=== PATIENT | female | born 1935 | race Caucasian/White ===

== ENCOUNTER 2017-06-11 06:12 | Emergency (ER) | payer MEDICARE, BC ==
[~2017-06-11] VITALS: Ht 5032.2 cm; Wt 89.5 kg
[~2017-06-11 06:12] MED LIST: AMIO200T57 PO; ASPI-1265 PO; ATOR20TA PO; ATR0.5NEB NEB; CALC600T2 PO; CARV3.1289 PO; CHOL100010 PO; DET2T PO; DONE10TA44 PO; FLUO20CA39 PO; FURO-150 PO; GLUC1CAP32 PO; HYDR-565 PO; LEVO150T8 PO; NITR0.4T51 SL; OMEG-79 PO; OMEP-84 PO; POTA10TA36 PO
[2017-06-11 06:49] LABS: BASOPHILS % (AUTO) 0.5 % (0-1); EOSINOPHILS # (AUTO) 0.4 X10'3 (0-0.9); EOSINOPHILS % (AUTO) 5.1 % (0-6); HEMOGLOBIN 13.3 g/dl (12.0-16.0); LYMPHOCYTES # (AUTO) 2.5 X10'3 (1.1-4.8); MEAN CORPUSCULAR HEMOGLOBIN 31.3 PG (27.0-31.0); MEAN CORPUSCULAR HGB CONC 34.2 % (33.0-36.5); MEAN CORPUSCULAR VOLUME 91.6 FL (78-98); MEAN PLATELET VOLUME 8.1 FL (7.4-10.4); MONOCYTES # (AUTO) 0.7 X10'3 (0-0.9); MONOCYTES % (AUTO) 7.6 % (2-12); NEUTROPHILS # (AUTO) 5.1 X10'3 (1.8-7.7); NEUTROPHILS % (AUTO) 57.8 % (42-75); PLATELET COUNT 236 X10'3 (140-440); RED BLOOD COUNT 4.26 X10'6 (4.20-5.60); RED CELL DISTRIBUTION WIDTH 15.4 % (11.5-14.5); WHITE BLOOD COUNT 8.8 X10'3 (4.5-11.0)
[2017-06-11 07:04] LABS: PARTIAL THROMBOPLASTIN TIME 27 SECONDS (22-32); PROTHROMBIN TIME 10.7 SECONDS (9.0-12.0)
[2017-06-11 07:11] LABS: ALANINE AMINOTRANSFERASE 27 U/L (12-78); ALBUMIN 3.4 G/DL (3.4-5.0); ALBUMIN/GLOBULIN RATIO 0.7 (1.1-1.5); ALKALINE PHOSPHATASE 141 IU/L (46-116); ANION GAP 9 (8-16); ASPARTATE AMINO TRANSFERASE 38 U/L (10-37); BILIRUBIN,TOTAL 0.5 MG/DL (0.1-1.0); BLOOD UREA NITROGEN 15 MG/DL (7-18); BUN/CREATININE RATIO 10.7 (6.6-38.0); CALCIUM 9.7 MG/DL (8.5-10.1); CHLORIDE 106 MMOL/L (99-107); GLUCOSE 81 MG/DL (70-104); MAGNESIUM 1.6 MG/DL (1.5-2.4); POTASSIUM 3.9 MMOL/L (3.5-5.1); SODIUM 143 MMOL/L (135-145); TOTAL CARBON DIOXIDE 28.3 MMOL/L (24-32); TOTAL PROTEIN 8.3 G/DL (6.4-8.2); eGFR 36 ML/MIN
[2017-06-11] MEDS ORDERED: HYDR-3968 PO ×2 (07:34→09:18)
[2017-06-11 08:22] LABS: D-DIMER 1.43 MG/L FEU (0-0.50)
[2017-06-11 09:48] VITALS: BP 144/81
== END 2017-06-11 09:51 | disposition home or self-care (01) ==
LOC: ER 06:14
DX: M54.9 Dorsalgia, unspecified (principal); I25.10 Atherosclerotic heart disease of native coronary artery without angina pectoris; E78.00 Pure hypercholesterolemia, unspecified; K21.9 Gastro-esophageal reflux disease without esophagitis; E03.9 Hypothyroidism, unspecified; Z90.49 Acquired absence of other specified parts of digestive tract; Z98.890 Other specified postprocedural states; Z88.5 Allergy status to narcotic agent; Z88.1 Allergy status to other antibiotic agents; Z91.040 Latex allergy status; Z79.82 Long term (current) use of aspirin
CPT/HCPCS: 36415; 71045; 80053; 83735; 83880; 84484; 85025; 85379; 85610; 85730; 99285

== ENCOUNTER 2017-06-18 16:00 | Inpatient (IN) | payer MEDICARE, BC ==
[~2017-06-18] VITALS: Ht 152.4 cm; Wt 87.0 kg
[~2017-06-18 16:00] MED LIST changes: +HYDR-3968 PO; -HYDR-565 PO
[2017-06-18] MEDS ORDERED: methylPREDNISolone sod succ 125mg/2ml vial IV ONE (16:20)
[2017-06-18] MEDS ORDERED: ipratropium/albuterol 3ml nebule NEB ONE (16:20)
[2017-06-18] MEDS ORDERED: levoFLOXACIN-Levaquin 500mg/D5 100 ML IV ONE (16:20)
[2017-06-18 16:56] LABS: ABG HCO3 28.9 mmol/L (22.0-26.0); ABG OXYGEN SATURATION 90.7 % (95-98); ABG PCO2 (T) 44.7 mmHg (32.0-45.0); ABG PH (T) 7.429 (7.350-7.450); ABG PO2 (T) 56.9 mmHg (83-108); ALLEN'S TEST Positive; FCOHb 0.9 % (0.5-1.5); FLOW 2 L/min; FO2Hb 89.9 % (94-100); TOTAL HEMOGLOBIN 13.6 G/dl (12.0-16.0)
[2017-06-18 17:24] LABS: BASOPHILS % (AUTO) 0.3 % (0-1); EOSINOPHILS # (AUTO) 0.2 X10'3 (0-0.9); HEMATOCRIT 38.8 % (35.0-45.0); HEMOGLOBIN 13.5 g/dl (12.0-16.0); LYMPHOCYTES # (AUTO) 3.3 X10'3 (1.1-4.8); LYMPHOCYTES % (AUTO) 34.2 % (21-51); MEAN CORPUSCULAR HEMOGLOBIN 31.4 PG (27.0-31.0); MEAN CORPUSCULAR HGB CONC 34.8 % (33.0-36.5); MEAN CORPUSCULAR VOLUME 90.3 FL (78-98); MEAN PLATELET VOLUME 8.3 FL (7.4-10.4); MONOCYTES % (AUTO) 10.4 % (2-12); NEUTROPHILS # (AUTO) 5.2 X10'3 (1.8-7.7); NEUTROPHILS % (AUTO) 53.1 % (42-75); PLATELET COUNT 266 X10'3 (140-440); RED CELL DISTRIBUTION WIDTH 15.3 % (11.5-14.5); WHITE BLOOD COUNT 9.8 X10'3 (4.5-11.0)
[2017-06-18 17:34] LABS: INR 1.1 INR
[2017-06-18 17:50] LABS: ALANINE AMINOTRANSFERASE 22 U/L (12-78); ALBUMIN 3.8 G/DL (3.4-5.0); ALBUMIN/GLOBULIN RATIO 0.8 (1.1-1.5); ALKALINE PHOSPHATASE 185 IU/L (46-116); ANION GAP 12 (8-16); ASPARTATE AMINO TRANSFERASE 41 U/L (10-37); BILIRUBIN,TOTAL 0.6 MG/DL (0.1-1.0); BLOOD UREA NITROGEN 18 MG/DL (7-18); CALCIUM 8.8 MG/DL (8.5-10.1); CHLORIDE 101 MMOL/L (99-107); GLUCOSE 88 MG/DL (70-104); POTASSIUM 3.3 MMOL/L (3.5-5.1); SODIUM 142 MMOL/L (135-145); TOTAL CARBON DIOXIDE 29.3 MMOL/L (24-32); TOTAL PROTEIN 8.8 G/DL (6.4-8.2); eGFR 43 ML/MIN
[2017-06-18] MEDS ORDERED: furosemide 40mg/4ml inj IV ONE (18:00)
[2017-06-18] MEDS ORDERED: hydrALAZINE 20mg/ml inj. IV ONE (18:00)
[2017-06-18] MEDS ORDERED: ondansetron/PF 4mg/2ml inj IV PRN (19:50)
[2017-06-18] MEDS ORDERED: morphine 4 MG/ML inj SYRINge IV PRN (19:50)
[2017-06-18] MEDS ORDERED: acetaminophen 325mg tablet PO PRN (19:50)
[2017-06-18] MEDS ORDERED: potassium Cl 20 mEq SR tablet PO PRN (19:55)
[2017-06-18] MEDS ORDERED: ipratropium 0.5 MG/2.5ML nebule IH PRN (19:55)
[2017-06-18] MEDS ORDERED: potassium Cl 40MEQ/NS 500ml 500 ML IV PRN ×2 (19:55)
[2017-06-18] MEDS ORDERED: albuterol 2.5 MG/3 ML nebule NEB PRN (19:55)
[2017-06-18 21:00] VITALS: BP 160/98
[2017-06-18] MEDS: atorvastatin 20mg tablet PO SCH (21:57)
[2017-06-18] MEDS: donepezil 5mg tablet PO SCH (21:57)
[2017-06-18] MEDS: potassium Cl 20 mEq SR tablet PO PRN (21:57)
[2017-06-18] MEDS: tolterodine 2mg SR capsule (24hr) PO SCH (21:58)
[2017-06-18] MEDS: guaiFENesin ER 600mg tablet PO SCH (21:59)
[2017-06-18] MEDS: carVEDilol 3.125mg tablet PO SCH (22:00)
[2017-06-18] MEDS: albuterol 2.5 MG/3 ML nebule NEB SCH (23:38)
[2017-06-19] VITALS: BP 127/72
[2017-06-19 00:40] LABS: CLARITY,URINE CLEAR (Clear); COLOR,URINE STRAW (Yellow); GLUCOSE, URINE NEGATIVE (Neg); KETONES,URINE NEGATIVE (Neg); LEUKOCYTE ESTERASE ,URINE TRACE (Neg); NITRITES, URINE NEGATIVE (Neg); OCCULT BLOOD,URINE TRACE-INTACT (Neg); PROTEIN,URINE NEGATIVE (Neg); UROBILINOGEN,URINE 0.2 E.U/dL (0.2-1.0)
[2017-06-19 00:48] LABS: UA COLLECTION TYPE CLN CATCH MIDSTREAM
[2017-06-19 00:49] LABS: BACTERIA,URINE NONE SEEN /HPF (Neg); MUCUS STRANDS NONE SEEN /LPF (Neg); RBC,URINE NONE SEEN /HPF (0-2); SQUAMOUS EPITHELIAL CELL,UR FEW /LPF (FEW); STARCH,URINE FEW /HPF (NEGATIVE); WBC,URINE 0-4 /HPF (0-4)
[2017-06-19 02:23] VITALS: BP 160/98
[2017-06-19] MEDS: albuterol 2.5 MG/3 ML nebule NEB SCH ×6 (03:33→23:40)
[2017-06-19 05:49] LABS: BASOPHILS % (AUTO) 0.1 % (0-1); EOSINOPHILS % (AUTO) 0.8 % (0-6); HEMATOCRIT 37.2 % (35.0-45.0); HEMOGLOBIN 12.9 g/dl (12.0-16.0); LYMPHOCYTES # (AUTO) 1.2 X10'3 (1.1-4.8); LYMPHOCYTES % (AUTO) 23.9 % (21-51); MEAN CORPUSCULAR HEMOGLOBIN 31.7 PG (27.0-31.0); MEAN CORPUSCULAR HGB CONC 34.7 % (33.0-36.5); MEAN CORPUSCULAR VOLUME 91.5 FL (78-98); MEAN PLATELET VOLUME 9.1 FL (7.4-10.4); MONOCYTES # (AUTO) 0.1 X10'3 (0-0.9); MONOCYTES % (AUTO) 1.4 % (2-12); NEUTROPHILS # (AUTO) 3.8 X10'3 (1.8-7.7); NEUTROPHILS % (AUTO) 73.8 % (42-75); PLATELET COUNT 244 X10'3 (140-440); RED BLOOD COUNT 4.07 X10'6 (4.20-5.60); WHITE BLOOD COUNT 5.1 X10'3 (4.5-11.0)
[2017-06-19 06:26] LABS: ALBUMIN 3.1 G/DL (3.4-5.0); ANION GAP 10 (8-16); BLOOD UREA NITROGEN 21 MG/DL (7-18); BUN/CREATININE RATIO 19.3 (6.6-38.0); CALCIUM 8.9 MG/DL (8.5-10.1); CHLORIDE 102 MMOL/L (99-107); CREATININE 1.09 MG/DL (0.40-0.90); GLUCOSE 131 MG/DL (70-104); MAGNESIUM 1.6 MG/DL (1.5-2.4); POTASSIUM 3.8 MMOL/L (3.5-5.1); SODIUM 143 MMOL/L (135-145); eGFR 48 ML/MIN
[2017-06-19] MEDS: budesonide 0.5mg/2ml UD nebule IH SCH ×2 (07:13→19:11)
[2017-06-19] MEDS: guaiFENesin ER 600mg tablet PO SCH ×2 (07:36→20:22)
[2017-06-19] MEDS: levoFLOXACIN-Levaquin 500mg/D5 100 ML IV SCH (07:36)
[2017-06-19] MEDS: carVEDilol 3.125mg tablet PO SCH ×2 (07:37→20:22)
[2017-06-19] MEDS: FLUoxetine 20mg capsule PO SCH (07:37)
[2017-06-19] MEDS: amiodarone 200mg tablet PO SCH (07:37)
[2017-06-19] MEDS: levoTHYROXINE 100mcg tablet PO SCH (07:37)
[2017-06-19] MEDS: pantoprazole 40mg Tablet.DR PO SCH (07:37)
[2017-06-19] MEDS: aspirin 325mg tablet, delayed-release (Ecotrin) PO SCH (07:37)
[2017-06-19] MEDS: furosemide 10 MG/1 ML 10ml inj IV SCH (07:38)
[2017-06-19 07:51] VITALS: BP 139/76
[2017-06-19 11:30] VITALS: BP 143/85
[2017-06-19] MEDS ORDERED: GLUC-133 PO (15:45)
[2017-06-19] MEDS ORDERED: LIOT5TAB7 PO (15:45)
[2017-06-19 20:00] VITALS: BP 126/61
[2017-06-19] MEDS: tolterodine 2mg SR capsule (24hr) PO SCH (20:22)
[2017-06-19] MEDS: donepezil 5mg tablet PO SCH (20:22)
[2017-06-19] MEDS: atorvastatin 20mg tablet PO SCH (20:22)
[2017-06-20] VITALS: BP 117/55
[2017-06-20] MEDS: albuterol 2.5 MG/3 ML nebule NEB SCH ×6 (03:45→23:32)
[2017-06-20 05:40] LABS: BASOPHILS % (AUTO) 0.3 % (0-1); EOSINOPHILS # (AUTO) 0.1 X10'3 (0-0.9); EOSINOPHILS % (AUTO) 1.3 % (0-6); HEMATOCRIT 36.8 % (35.0-45.0); HEMOGLOBIN 12.6 g/dl (12.0-16.0); LYMPHOCYTES # (AUTO) 2.3 X10'3 (1.1-4.8); LYMPHOCYTES % (AUTO) 21.3 % (21-51); MEAN CORPUSCULAR HEMOGLOBIN 31.8 PG (27.0-31.0); MEAN CORPUSCULAR HGB CONC 34.4 % (33.0-36.5); MEAN CORPUSCULAR VOLUME 92.4 FL (78-98); MEAN PLATELET VOLUME 8.9 FL (7.4-10.4); MONOCYTES # (AUTO) 1.1 X10'3 (0-0.9); MONOCYTES % (AUTO) 10.5 % (2-12); NEUTROPHILS # (AUTO) 7.2 X10'3 (1.8-7.7); NEUTROPHILS % (AUTO) 66.6 % (42-75); PLATELET COUNT 237 X10'3 (140-440); RED BLOOD COUNT 3.98 X10'6 (4.20-5.60); RED CELL DISTRIBUTION WIDTH 15.3 % (11.5-14.5); WHITE BLOOD COUNT 10.8 X10'3 (4.5-11.0)
[2017-06-20 05:49] LABS: ANION GAP 8 (8-16); BLOOD UREA NITROGEN 29 MG/DL (7-18); BUN/CREATININE RATIO 21.3 (6.6-38.0); CALCIUM 8.9 MG/DL (8.5-10.1); CHLORIDE 103 MMOL/L (99-107); CREATININE 1.36 MG/DL (0.40-0.90); GLUCOSE 98 MG/DL (70-104); MAGNESIUM 1.7 MG/DL (1.5-2.4); POTASSIUM 3.2 MMOL/L (3.5-5.1); SODIUM 143 MMOL/L (135-145); TOTAL CARBON DIOXIDE 32.4 MMOL/L (24-32); eGFR 37 ML/MIN
[2017-06-20] MEDS: pantoprazole 40mg Tablet.DR PO SCH (08:01)
[2017-06-20] MEDS: amiodarone 200mg tablet PO SCH (08:02)
[2017-06-20] MEDS: levoFLOXACIN-Levaquin 500mg/D5 100 ML IV SCH (08:02)
[2017-06-20] MEDS: furosemide 10 MG/1 ML 10ml inj IV SCH (08:02)
[2017-06-20] MEDS: FLUoxetine 20mg capsule PO SCH (08:03)
[2017-06-20] MEDS: guaiFENesin ER 600mg tablet PO SCH ×2 (08:03→20:38)
[2017-06-20] MEDS: aspirin 325mg tablet, delayed-release (Ecotrin) PO SCH (08:03)
[2017-06-20] MEDS: carVEDilol 3.125mg tablet PO SCH ×2 (08:03→20:38)
[2017-06-20] MEDS: levoTHYROXINE 100mcg tablet PO SCH (08:04)
[2017-06-20] MEDS: potassium Cl 20 mEq SR tablet PO PRN ×2 (08:04→14:50)
[2017-06-20 08:16] VITALS: BP 140/79
[2017-06-20] MEDS: budesonide 0.5mg/2ml UD nebule IH SCH ×2 (08:48→19:10)
[2017-06-20 11:25] LABS: D-DIMER 0.82 MG/L FEU (0-0.50)
[2017-06-20 12:18] VITALS: BP 114/73
[2017-06-20 20:00] VITALS: BP 125/76
[2017-06-20] MEDS: atorvastatin 20mg tablet PO SCH (20:38)
[2017-06-20] MEDS: donepezil 5mg tablet PO SCH (20:38)
[2017-06-20] MEDS: tolterodine 2mg SR capsule (24hr) PO SCH (20:38)
[2017-06-21] VITALS: BP 125/70
[2017-06-21] MEDS: potassium Cl 20 mEq SR tablet PO PRN (01:07)
[2017-06-21] MEDS: albuterol 2.5 MG/3 ML nebule NEB SCH ×4 (04:04→15:00)
[2017-06-21 05:13] LABS: BASOPHILS # (AUTO) 0.1 X10'3 (0-0.2); BASOPHILS % (AUTO) 0.9 % (0-1); EOSINOPHILS # (AUTO) 0.2 X10'3 (0-0.9); EOSINOPHILS % (AUTO) 2.1 % (0-6); HEMATOCRIT 38.6 % (35.0-45.0); HEMOGLOBIN 13.3 g/dl (12.0-16.0); LYMPHOCYTES # (AUTO) 2.6 X10'3 (1.1-4.8); LYMPHOCYTES % (AUTO) 29.6 % (21-51); MEAN CORPUSCULAR HEMOGLOBIN 31.3 PG (27.0-31.0); MEAN CORPUSCULAR HGB CONC 34.4 % (33.0-36.5); MONOCYTES # (AUTO) 0.9 X10'3 (0-0.9); MONOCYTES % (AUTO) 10.6 % (2-12); NEUTROPHILS # (AUTO) 4.9 X10'3 (1.8-7.7); NEUTROPHILS % (AUTO) 56.8 % (42-75); PLATELET COUNT 274 X10'3 (140-440); RED BLOOD COUNT 4.24 X10'6 (4.20-5.60); RED CELL DISTRIBUTION WIDTH 15.5 % (11.5-14.5); WHITE BLOOD COUNT 8.7 X10'3 (4.5-11.0)
[2017-06-21 05:37] LABS: ALBUMIN 3.3 G/DL (3.4-5.0); ANION GAP 10 (8-16); BLOOD UREA NITROGEN 32 MG/DL (7-18); BUN/CREATININE RATIO 21.3 (6.6-38.0); CALCIUM 8.9 MG/DL (8.5-10.1); CHLORIDE 102 MMOL/L (99-107); GLUCOSE 89 MG/DL (70-104); MAGNESIUM 1.9 MG/DL (1.5-2.4); POTASSIUM 4.3 MMOL/L (3.5-5.1); SODIUM 142 MMOL/L (135-145); eGFR 33 ML/MIN
[2017-06-21] MEDS: budesonide 0.5mg/2ml UD nebule IH SCH (07:27)
[2017-06-21 08:00] VITALS: BP 124/73
[2017-06-21] MEDS: guaiFENesin ER 600mg tablet PO SCH (08:02)
[2017-06-21] MEDS: amiodarone 200mg tablet PO SCH (08:02)
[2017-06-21] MEDS: levoTHYROXINE 100mcg tablet PO SCH (08:02)
[2017-06-21] MEDS: FLUoxetine 20mg capsule PO SCH (08:03)
[2017-06-21] MEDS: pantoprazole 40mg Tablet.DR PO SCH (08:03)
[2017-06-21] MEDS: aspirin 325mg tablet, delayed-release (Ecotrin) PO SCH (08:03)
[2017-06-21] MEDS: carVEDilol 3.125mg tablet PO SCH (08:03)
[2017-06-21] MEDS: furosemide 10 MG/1 ML 10ml inj IV SCH (08:04)
[2017-06-21] MEDS ORDERED: levoFLOXACIN 500mg tablet PO SCH (11:00)
[2017-06-21 11:05] VITALS: BP 106/59
[2017-06-21] MEDS ORDERED: AZIT500T PO (14:13)
[2017-06-21] MEDS ORDERED: lactobacillus rhamnosus 10,000 MMU CELLS/CAPSULE PO SCH (17:30)
== END 2017-06-21 17:20 | disposition home or self-care (01) | DRG 291 ==
LOC: ER 16:01 → ED HOLD 19:46 → SUR 3N 20:45
PROVIDERS: ADMIT Family Medicine; ATTEND Internal Medicine
PROC: BW241ZZ Computerized Tomography (CT Scan) of Chest and Abdomen using Low Osmolar Contrast (ICD-10-PCS; principal; 2017-06-20)
PROC: CB221ZZ Tomographic (Tomo) Nuclear Medicine Imaging of Lungs and Bronchi using Technetium 99m (Tc-99m) (ICD-10-PCS; 2017-06-21)
DX: I13.0 Hypertensive heart and chronic kidney disease with heart failure and stage 1 through stage 4 chronic kidney disease, or unspecified chronic kidney disease (principal); J96.21 Acute and chronic respiratory failure with hypoxia; I48.91 Unspecified atrial fibrillation; J44.1 Chronic obstructive pulmonary disease with (acute) exacerbation; C50.919 Malignant neoplasm of unspecified site of unspecified female breast; D63.8 Anemia in other chronic diseases classified elsewhere; I50.33 Acute on chronic diastolic (congestive) heart failure; J98.11 Atelectasis; E03.9 Hypothyroidism, unspecified; E07.81 Sick-euthyroid syndrome; E78.00 Pure hypercholesterolemia, unspecified; E78.5 Hyperlipidemia, unspecified; M19.90 Unspecified osteoarthritis, unspecified site; F03.90 Unspecified dementia, unspecified severity, without behavioral disturbance, psychotic disturbance, mood disturbance, and anxiety; R32 Unspecified urinary incontinence; G47.30 Sleep apnea, unspecified; E87.6 Hypokalemia; I25.10 Atherosclerotic heart disease of native coronary artery without angina pectoris; K21.9 Gastro-esophageal reflux disease without esophagitis; K44.9 Diaphragmatic hernia without obstruction or gangrene; N18.3 Chronic kidney disease, stage 3 (moderate); Z66 Do not resuscitate; Z90.49 Acquired absence of other specified parts of digestive tract; Z95.0 Presence of cardiac pacemaker; Z88.5 Allergy status to narcotic agent; Z88.1 Allergy status to other antibiotic agents; Z91.040 Latex allergy status; Z79.899 Other long term (current) drug therapy; Z79.82 Long term (current) use of aspirin; Z87.891 Personal history of nicotine dependence
CPT/HCPCS: 36415; 36600; 71045; 71250; 78582; 80048; 80053; 81001; 82803; 83605; 83735; 83880; 84439; 84443; 84484; 85018; 85025; 85379; 85610; 85651; 86140; 87040; 87070; 87088; 87502; 87503; 93005; 93306; 94640; 94760; 96365; 96375; 99285; A9539; A9540; J0360; J1940; J1956; J2930; J7626

== ENCOUNTER 2017-07-06 12:21 | Inpatient (IN) | payer MEDICARE, BC ==
[~2017-07-06] VITALS: Ht 162.6 cm; Wt 72.0 kg
[~2017-07-06 12:21] MED LIST changes: -FURO-150 PO; +LIOT5TAB7 PO
[2017-07-06 13:01] LABS: BASOPHILS % (AUTO) 0.3 % (0-1); EOSINOPHILS # (AUTO) 0.2 X10'3 (0-0.9); EOSINOPHILS % (AUTO) 1.9 % (0-6); HEMATOCRIT 34.7 % (35.0-45.0); HEMOGLOBIN 11.9 g/dl (12.0-16.0); LYMPHOCYTES # (AUTO) 2.2 X10'3 (1.1-4.8); LYMPHOCYTES % (AUTO) 25.9 % (21-51); MEAN CORPUSCULAR HEMOGLOBIN 31.3 PG (27.0-31.0); MEAN CORPUSCULAR HGB CONC 34.4 % (33.0-36.5); MEAN CORPUSCULAR VOLUME 90.9 FL (78-98); MEAN PLATELET VOLUME 9.2 FL (7.4-10.4); MONOCYTES # (AUTO) 0.9 X10'3 (0-0.9); NEUTROPHILS # (AUTO) 5.1 X10'3 (1.8-7.7); NEUTROPHILS % (AUTO) 60.9 % (42-75); PLATELET COUNT 205 X10'3 (140-440); RED BLOOD COUNT 3.81 X10'6 (4.20-5.60); WHITE BLOOD COUNT 8.3 X10'3 (4.5-11.0)
[2017-07-06 13:11] LABS: INR 1.1 INR; PARTIAL THROMBOPLASTIN TIME 30 SECONDS (22-32); PROTHROMBIN TIME 11.4 SECONDS (9.0-12.0)
[2017-07-06 13:25] LABS: ALANINE AMINOTRANSFERASE 31 U/L (12-78); ALBUMIN 2.5 G/DL (3.4-5.0); ALBUMIN/GLOBULIN RATIO 0.5 (1.1-1.5); ALKALINE PHOSPHATASE 214 IU/L (46-116); ANION GAP 11 (8-16); ASPARTATE AMINO TRANSFERASE 43 U/L (10-37); BILIRUBIN,TOTAL 0.5 MG/DL (0.1-1.0); BLOOD UREA NITROGEN 24 MG/DL (7-18); BUN/CREATININE RATIO 22.2 (6.6-38.0); CALCIUM 9.1 MG/DL (8.5-10.1); CHLORIDE 105 MMOL/L (99-107); CREATININE 1.08 MG/DL (0.40-0.90); GLUCOSE 104 MG/DL (70-104); POTASSIUM 3.5 MMOL/L (3.5-5.1); SODIUM 144 MMOL/L (135-145); TOTAL CARBON DIOXIDE 28.3 MMOL/L (24-32); TOTAL PROTEIN 7.7 G/DL (6.4-8.2); eGFR 49 ML/MIN
[2017-07-06] MEDS ORDERED: potassium Cl 20 mEq SR tablet PO PRN (13:55)
[2017-07-06] MEDS ORDERED: potassium Cl 40MEQ/NS 500ml 500 ML IV PRN ×2 (13:55)
[2017-07-06] MEDS ORDERED: magnesium 2GM in 50ml NS 50 ML IV PRN (13:55)
[2017-07-06] MEDS ORDERED: morphine 2 MG/ML inj. syringe IV PRN (13:55)
[2017-07-06] MEDS: K and/or MAG REPLACEMENT MC SCH (13:55)
[2017-07-06] MEDS ORDERED: acetaminophen 325mg tablet PO PRN (13:55)
[2017-07-06] MEDS ORDERED: magnesium hydroxide 30ml (MOM) UD suspension PO PRN (13:55)
[2017-07-06] MEDS ORDERED: magnesium Cl slow-release 64mg tablet PO PRN (13:55)
[2017-07-06] MEDS ORDERED: ondansetron/PF 4mg/2ml inj IV PRN (13:55)
[2017-07-06] MEDS ORDERED: magnesium 4gm in 100ml NS 100 ML IV PRN (13:55)
[2017-07-06] MEDS ORDERED: mag hydrox/Alum hydrox/simeth 30ml oral suspension PO PRN (13:55)
[2017-07-06] MEDS: normal saline 1000ml 1,000 ML IV SCH (15:28)
[2017-07-06 17:01] LABS: CLARITY,URINE SLIGHTLY CLOUDY (Clear); COLOR,URINE YELLOW (Yellow); GLUCOSE, URINE NEGATIVE (Neg); KETONES,URINE TRACE mg/dl (Neg); LEUKOCYTE ESTERASE ,URINE NEGATIVE (Neg); NITRITES, URINE NEGATIVE (Neg); OCCULT BLOOD,URINE NEGATIVE (Neg); PROTEIN,URINE NEGATIVE (Neg); UROBILINOGEN,URINE 0.2 E.U/dL (0.2-1.0)
[2017-07-06 17:07] LABS: UA COLLECTION TYPE OTHER
[2017-07-06 17:09] LABS: BACTERIA,URINE FEW /HPF (Neg); RBC,URINE 0-2 /HPF (0-2); RENAL CELLS, URINE FEW /HPF; SQUAMOUS EPITHELIAL CELL,UR FEW /LPF (FEW); WBC,URINE 0-4 /HPF (0-4)
[2017-07-06] MEDS ORDERED: temazepam 15mg capsule PO PRN (21:00)
[2017-07-06] MEDS ORDERED: methylPREDNISolone sod succ 125mg/2ml vial IV ONE (22:05)
[2017-07-06] MEDS: heparin, porcine 5000 units/ml vial SQ SCH (22:53)
[2017-07-06] MEDS: HYDROcodone/acetaminophen 5mg/325mg tablet PO PRN (22:53)
[2017-07-07] MEDS ORDERED: morphine 4 MG/ML inj SYRINge IV PRN (00:05)
[2017-07-07 02:27] VITALS: BP 127/86
[2017-07-07 02:33] LABS: INR 1.1 INR; PROTHROMBIN TIME 11.4 SECONDS (9.0-12.0)
[2017-07-07 02:36] LABS: BASOPHILS % (AUTO) 0.2 % (0-1); EOSINOPHILS % (AUTO) 0.1 % (0-6); HEMATOCRIT 34.8 % (35.0-45.0); HEMOGLOBIN 11.9 g/dl (12.0-16.0); LYMPHOCYTES % (AUTO) 15.8 % (21-51); MEAN CORPUSCULAR HEMOGLOBIN 31.3 PG (27.0-31.0); MEAN CORPUSCULAR HGB CONC 34.4 % (33.0-36.5); MEAN CORPUSCULAR VOLUME 91.2 FL (78-98); MEAN PLATELET VOLUME 9.9 FL (7.4-10.4); MONOCYTES # (AUTO) 0.1 X10'3 (0-0.9); MONOCYTES % (AUTO) 1.3 % (2-12); NEUTROPHILS # (AUTO) 5.2 X10'3 (1.8-7.7); NEUTROPHILS % (AUTO) 82.6 % (42-75); PLATELET COUNT 195 X10'3 (140-440); RED BLOOD COUNT 3.81 X10'6 (4.20-5.60); RED CELL DISTRIBUTION WIDTH 14.2 % (11.5-14.5); WHITE BLOOD COUNT 6.3 X10'3 (4.5-11.0)
[2017-07-07 02:40] LABS: ALBUMIN 2.5 G/DL (3.4-5.0); ANION GAP 14 (8-16); BLOOD UREA NITROGEN 26 MG/DL (7-18); BUN/CREATININE RATIO 28.6 (6.6-38.0); CALCIUM 9.3 MG/DL (8.5-10.1); CHLORIDE 106 MMOL/L (99-107); CREATININE 0.91 MG/DL (0.40-0.90); GLUCOSE 102 MG/DL (70-104); MAGNESIUM 2.2 MG/DL (1.5-2.4); POTASSIUM 3.9 MMOL/L (3.5-5.1); SODIUM 144 MMOL/L (135-145); TOTAL CARBON DIOXIDE 24.3 MMOL/L (24-32); eGFR 59 ML/MIN
[2017-07-07] MEDS: cefTRIAXone 1g/NS 100ml IVPB 100 ML IV SCH (04:43)
[2017-07-07] MEDS: azithromycin/NS 500mg/250ml 250 ML IV SCH ×2 (05:18→21:00)
[2017-07-07 08:00] VITALS: BP 141/79
[2017-07-07] MEDS ORDERED: azithromycin/NS 500mg/250ml 250 ML IV SCH (08:00)
[2017-07-07] MEDS ORDERED: cefTRIAXone 1g/NS 100ml IVPB 100 ML IV SCH (08:00)
[2017-07-07] MEDS: K and/or MAG REPLACEMENT MC SCH (08:00)
[2017-07-07] MEDS ORDERED: heparin, porcine 5000 units/ml vial SQ SCH (08:00)
[2017-07-07] MEDS: methylPREDNISolone sod succ 125mg/2ml vial IV SCH ×2 (08:27→13:06)
[2017-07-07] MEDS: pantoprazole 40 MG vial IV SCH (08:28)
[2017-07-07] MEDS: furosemide 20 MG/2 ML vial IV SCH ×2 (08:28→22:26)
[2017-07-07] MEDS: heparin, porcine 5000 units/ml vial SQ SCH ×2 (08:30→20:00)
[2017-07-07] MEDS ORDERED: FURO-150 PO (11:12)
[2017-07-07] MEDS ORDERED: VITA0.4T2 (11:14)
[2017-07-07] MEDS ORDERED: ALBU18HF2 INH (11:16)
[2017-07-07] MEDS ORDERED: TRAM50TA2 PO (11:18)
[2017-07-07 12:09] VITALS: BP 142/79
[2017-07-07] MEDS: ipratropium/albuterol 3ml nebule NEB PRN (17:19)
[2017-07-07 19:00] VITALS: BP 130/70
[2017-07-07] MEDS ORDERED: nitroGLYCERIN 0.4mg SUBLingual tab SL PRN (21:15)
[2017-07-07] MEDS ORDERED: traMADol 50MG tablet PO PRN (21:15)
[2017-07-07] MEDS ORDERED: donepezil 5mg tablet PO ONE (21:25)
[2017-07-07] MEDS: lactobacillus rhamnosus 10,000 MMU CELLS/CAPSULE PO SCH (22:31)
[2017-07-07] MEDS: HYDROcodone/acetaminophen 5mg/325mg tablet PO PRN (23:27)
[2017-07-08] VITALS: BP 140/72
[2017-07-08] MEDS: cefTRIAXone 1g/NS 100ml IVPB 100 ML IV SCH (00:24)
[2017-07-08] MEDS: HYDROcodone/acetaminophen 5mg/325mg tablet PO PRN ×3 (04:41→17:30)
[2017-07-08 06:39] LABS: INR 1.1 INR; PROTHROMBIN TIME 11.7 SECONDS (9.0-12.0)
[2017-07-08 06:59] LABS: ALBUMIN 2.4 G/DL (3.4-5.0); ANION GAP 14 (8-16); BLOOD UREA NITROGEN 35 MG/DL (7-18); BUN/CREATININE RATIO 35.4 (6.6-38.0); CALCIUM 8.9 MG/DL (8.5-10.1); CHLORIDE 107 MMOL/L (99-107); CREATININE 0.99 MG/DL (0.40-0.90); GLUCOSE 146 MG/DL (70-104); POTASSIUM 3.4 MMOL/L (3.5-5.1); SODIUM 146 MMOL/L (135-145); TOTAL CARBON DIOXIDE 25.3 MMOL/L (24-32); eGFR 54 ML/MIN
[2017-07-08 07:00] VITALS: BP 146/75
[2017-07-08] MEDS ORDERED: levoTHYROXINE 100mcg tablet PO SCH (07:00)
[2017-07-08] MEDS: lactobacillus rhamnosus 10,000 MMU CELLS/CAPSULE PO SCH (08:00)
[2017-07-08] MEDS ORDERED: LIOthyronine 25mcg tablet PO SCH (08:00)
[2017-07-08] MEDS ORDERED: aspirin 325mg tablet PO SCH (08:00)
[2017-07-08] MEDS: K and/or MAG REPLACEMENT MC SCH (08:00)
[2017-07-08] MEDS ORDERED: amiodarone 200mg tablet PO SCH (08:00)
[2017-07-08] MEDS ORDERED: LEVOTHYROXINE SODIUM PO SCH (08:00)
[2017-07-08] MEDS ORDERED: carVEDilol 3.125mg tablet PO SCH (08:00)
[2017-07-08] MEDS ORDERED: FLUoxetine 20mg capsule PO SCH (08:00)
[2017-07-08] MEDS: heparin, porcine 5000 units/ml vial SQ SCH (08:00)
[2017-07-08] MEDS: methylPREDNISolone sod succ/PF 40mg inj. IV SCH ×2 (08:00→13:00)
[2017-07-08] MEDS: pantoprazole 40 MG vial IV SCH (08:00)
[2017-07-08] MEDS ORDERED: furosemide 20MG tablet PO SCH (08:00)
[2017-07-08] MEDS: potassium Cl 20 mEq SR tablet PO PRN ×2 (09:31→14:54)
[2017-07-08 11:00] VITALS: BP 149/91
[2017-07-08] MEDS: normal saline 1000ml 1,000 ML IV SCH (13:53)
[2017-07-08] MEDS ORDERED: AZI25OT PO (17:54)
[2017-07-08] MEDS ORDERED: PRED10TA PO (17:54)
[2017-07-08] MEDS ORDERED: FURO-150 PO (17:54)
[2017-07-08] MEDS ORDERED: HYDR-569 PO (17:54)
[2017-07-08 19:00] VITALS: BP 148/86
[2017-07-08] MEDS: ipratropium/albuterol 3ml nebule NEB PRN (19:38)
[2017-07-08] MEDS ORDERED: atorvastatin 20mg tablet PO SCH (21:00)
[2017-07-08] MEDS ORDERED: donepezil 5mg tablet PO SCH (21:00)
[2017-07-09] MEDS ORDERED: pantoprazole 40mg Tablet.DR PO SCH (07:30)
[2017-07-09] MEDS ORDERED: azithromycin 250mg tablet PO SCH (08:00)
== END 2017-07-08 20:00 | disposition home or self-care (01) | DRG 193 ==
LOC: ER 12:22 → ED HOLD 16:22 → EDBEDREQ 18:33 → SUR 3N 19:03
PROVIDERS: ADMIT Family Medicine; ATTEND Family Medicine
DX: J18.9 Pneumonia, unspecified organism (principal); I50.33 Acute on chronic diastolic (congestive) heart failure; J96.21 Acute and chronic respiratory failure with hypoxia; J44.0 Chronic obstructive pulmonary disease with (acute) lower respiratory infection; C50.912 Malignant neoplasm of unspecified site of left female breast; I48.91 Unspecified atrial fibrillation; Z99.81 Dependence on supplemental oxygen; E03.9 Hypothyroidism, unspecified; E78.00 Pure hypercholesterolemia, unspecified; F03.90 Unspecified dementia, unspecified severity, without behavioral disturbance, psychotic disturbance, mood disturbance, and anxiety; G47.30 Sleep apnea, unspecified; I25.10 Atherosclerotic heart disease of native coronary artery without angina pectoris; M19.90 Unspecified osteoarthritis, unspecified site; I35.0 Nonrheumatic aortic (valve) stenosis; K21.9 Gastro-esophageal reflux disease without esophagitis; Z90.49 Acquired absence of other specified parts of digestive tract; Z95.0 Presence of cardiac pacemaker; Z88.1 Allergy status to other antibiotic agents; Z88.6 Allergy status to analgesic agent; Z91.040 Latex allergy status; Z79.899 Other long term (current) drug therapy; Z79.01 Long term (current) use of anticoagulants; Z79.82 Long term (current) use of aspirin; Z87.891 Personal history of nicotine dependence
CPT/HCPCS: 36415; 71101; 80048; 80053; 81001; 83735; 83880; 84484; 85025; 85610; 85730; 87070; 93005; 94640; 94760; 97162; 97530; 99285; C9113; J0456; J0696; J1644; J1940; J2270; J2920; J2930; J7030

== ENCOUNTER 2017-07-15 03:37 | Inpatient (IN) | payer MEDICARE, BC ==
[~2017-07-15] VITALS: Ht 152.4 cm; Wt 80.5 kg
[~2017-07-15 03:37] MED LIST changes: +ALBU18HF2 INH; +AZI25OT PO; -DET2T PO; +FURO-150 PO; -HYDR-3968 PO; +HYDR-569 PO; +PRED10TA PO; +TRAM50TA2 PO; +VITA0.4T2
[2017-07-15 05:03] LABS: BASOPHILS # (AUTO) 0.1 X10'3 (0-0.2); BASOPHILS % (AUTO) 0.5 % (0-1); EOSINOPHILS # (AUTO) 0.3 X10'3 (0-0.9); EOSINOPHILS % (AUTO) 3.2 % (0-6); HEMATOCRIT 35.1 % (35.0-45.0); LYMPHOCYTES # (AUTO) 1.9 X10'3 (1.1-4.8); LYMPHOCYTES % (AUTO) 18.4 % (21-51); MEAN CORPUSCULAR HEMOGLOBIN 30.7 PG (27.0-31.0); MEAN CORPUSCULAR HGB CONC 34.3 % (33.0-36.5); MEAN CORPUSCULAR VOLUME 89.5 FL (78-98); MONOCYTES # (AUTO) 1.1 X10'3 (0-0.9); MONOCYTES % (AUTO) 10.7 % (2-12); NEUTROPHILS # (AUTO) 6.9 X10'3 (1.8-7.7); NEUTROPHILS % (AUTO) 67.2 % (42-75); PLATELET COUNT 225 X10'3 (140-440); RED BLOOD COUNT 3.92 X10'6 (4.20-5.60); RED CELL DISTRIBUTION WIDTH 14.2 % (11.5-14.5); WHITE BLOOD COUNT 10.3 X10'3 (4.5-11.0)
[2017-07-15 05:24] LABS: ALANINE AMINOTRANSFERASE 37 U/L (12-78); ALBUMIN 2.5 G/DL (3.4-5.0); ALBUMIN/GLOBULIN RATIO 0.5 (1.1-1.5); ALKALINE PHOSPHATASE 183 IU/L (46-116); ANION GAP 8 (8-16); ASPARTATE AMINO TRANSFERASE 33 U/L (10-37); BILIRUBIN,TOTAL 0.7 MG/DL (0.1-1.0); BLOOD UREA NITROGEN 28 MG/DL (7-18); BUN/CREATININE RATIO 25.2 (6.6-38.0); CALCIUM 8.7 MG/DL (8.5-10.1); CHLORIDE 104 MMOL/L (99-107); CREATININE 1.11 MG/DL (0.40-0.90); GLUCOSE 96 MG/DL (70-104); POTASSIUM 3.1 MMOL/L (3.5-5.1); SODIUM 143 MMOL/L (135-145); TOTAL CARBON DIOXIDE 31.3 MMOL/L (24-32); TOTAL PROTEIN 7.2 G/DL (6.4-8.2); eGFR 47 ML/MIN
[2017-07-15] MEDS ORDERED: potassium Cl 20 mEq SR tablet PO STA (05:52)
[2017-07-15] MEDS ORDERED: azithromycin 250mg tablet PO ONE (06:15)
[2017-07-15] MEDS ORDERED: CefTRIAXone 2gm/NS 100ml IVPB 100 ML IV ONE (06:15)
[2017-07-15] MEDS ORDERED: aspirin 81mg tab.chew PO ONE (06:15)
[2017-07-15] MEDS ORDERED: furosemide 10 MG/1 ML 10ml inj IV ONE (06:15)
[2017-07-15] MEDS ORDERED: potassium 10mEq/100ml NS w/LIDOcaine (10mg/bag) IV ONE (06:20)
[2017-07-15] MEDS ORDERED: magnesium 2GM in 50ml NS 50 ML IV ONE (06:20)
[2017-07-15] MEDS ORDERED: HYDROcodone/acetaminophen 5mg/325mg tablet PO PRN (08:55)
[2017-07-15] MEDS ORDERED: albuterol 2.5 MG/3 ML nebule NEB PRN (08:55)
[2017-07-15] MEDS ORDERED: nitroGLYCERIN 0.4mg SUBLingual tab SL PRN (08:55)
[2017-07-15] MEDS ORDERED: methylPREDNISolone sod succ 125mg/2ml vial IV ONE (09:20)
[2017-07-15] MEDS ORDERED: pantoprazole 40 MG vial IV ONE (09:25)
[2017-07-15] MEDS: ipratropium/albuterol 3ml nebule NEB SCH ×3 (11:46→20:59)
[2017-07-15] MEDS ORDERED: methylPREDNISolone sod succ 125mg/2ml vial IV SCH ×3 (13:00→20:00)
[2017-07-15] MEDS ORDERED: DET2T PO (14:05)
[2017-07-15] MEDS ORDERED: [UNRECOGNIZED DRUG - OTHER] (14:08)
[2017-07-15] MEDS ORDERED: MULT-933 PO (14:13)
[2017-07-15] MEDS: traMADol 50MG tablet PO PRN (15:24)
[2017-07-15] MEDS: LIDOcaine 5% patch TP SCH (16:58)
[2017-07-15 19:00] VITALS: BP 121/61
[2017-07-15] MEDS ORDERED: furosemide 20 MG/2 ML vial IV SCH (20:00)
[2017-07-15] MEDS: donepezil 5mg tablet PO SCH (21:00)
[2017-07-15] MEDS: pantoprazole 40mg Tablet.DR PO SCH (21:23)
[2017-07-15] MEDS: potassium chloride 10mEq ER tablet PO SCH (21:24)
[2017-07-15] MEDS: atorvastatin 20mg tablet PO SCH (21:24)
[2017-07-15] MEDS: carVEDilol 3.125mg tablet PO SCH (21:24)
[2017-07-15] MEDS: heparin, porcine 5000 units/ml vial SQ SCH (21:25)
[2017-07-15] MEDS: methylPREDNISolone sod succ 125mg/2ml vial IV SCH (21:25)
[2017-07-15] MEDS: furosemide 40mg/4ml inj IV SCH (21:26)
[2017-07-15 23:00] VITALS: BP 124/60
[2017-07-16] MEDS: ipratropium/albuterol 3ml nebule NEB SCH ×7 (00:34→23:26)
[2017-07-16 03:00] VITALS: BP 143/68
[2017-07-16] MEDS: methylPREDNISolone sod succ 125mg/2ml vial IV SCH ×3 (05:00→19:39)
[2017-07-16 06:00] VITALS: BP 136/75
[2017-07-16 06:25] LABS: BASOPHILS % (AUTO) 0.1 % (0-1); EOSINOPHILS # (AUTO) 0.2 X10'3 (0-0.9); EOSINOPHILS % (AUTO) 1.6 % (0-6); HEMATOCRIT 34.4 % (35.0-45.0); HEMOGLOBIN 11.9 g/dl (12.0-16.0); LYMPHOCYTES % (AUTO) 9.1 % (21-51); MEAN CORPUSCULAR HEMOGLOBIN 31.1 PG (27.0-31.0); MEAN CORPUSCULAR HGB CONC 34.7 % (33.0-36.5); MEAN CORPUSCULAR VOLUME 89.7 FL (78-98); MEAN PLATELET VOLUME 9.5 FL (7.4-10.4); MONOCYTES # (AUTO) 0.1 X10'3 (0-0.9); MONOCYTES % (AUTO) 1.1 % (2-12); NEUTROPHILS # (AUTO) 10.1 X10'3 (1.8-7.7); NEUTROPHILS % (AUTO) 88.1 % (42-75); PLATELET COUNT 212 X10'3 (140-440); RED BLOOD COUNT 3.84 X10'6 (4.20-5.60); RED CELL DISTRIBUTION WIDTH 13.8 % (11.5-14.5); WHITE BLOOD COUNT 11.4 X10'3 (4.5-11.0)
[2017-07-16 06:41] LABS: ALANINE AMINOTRANSFERASE 38 U/L (12-78); ALBUMIN 2.5 G/DL (3.4-5.0); ALBUMIN/GLOBULIN RATIO 0.5 (1.1-1.5); ALKALINE PHOSPHATASE 173 IU/L (46-116); ANION GAP 10 (8-16); ASPARTATE AMINO TRANSFERASE 27 U/L (10-37); BILIRUBIN,TOTAL 0.4 MG/DL (0.1-1.0); BLOOD UREA NITROGEN 26 MG/DL (7-18); BUN/CREATININE RATIO 28.3 (6.6-38.0); CALCIUM 8.6 MG/DL (8.5-10.1); CHLORIDE 105 MMOL/L (99-107); CREATININE 0.92 MG/DL (0.40-0.90); GLUCOSE 164 MG/DL (70-104); POTASSIUM 3.2 MMOL/L (3.5-5.1); SODIUM 144 MMOL/L (135-145); TOTAL CARBON DIOXIDE 29.5 MMOL/L (24-32); TOTAL PROTEIN 7.3 G/DL (6.4-8.2); eGFR 59 ML/MIN
[2017-07-16] MEDS ORDERED: magnesium 4gm in 100ml NS 100 ML IV PRN (08:00)
[2017-07-16] MEDS ORDERED: magnesium 2GM in 50ml NS 50 ML IV PRN (08:00)
[2017-07-16] MEDS ORDERED: GLUCOSAMINE HCL PO SCH (08:00)
[2017-07-16] MEDS: LIDOcaine 5% patch TP SCH (08:00)
[2017-07-16] MEDS ORDERED: potassium Cl 40MEQ/NS 500ml 500 ML IV PRN ×4 (08:00→09:05)
[2017-07-16] MEDS ORDERED: CHONDROITIN PO SCH (08:00)
[2017-07-16] MEDS ORDERED: magnesium Cl slow-release 64mg tablet PO PRN (08:00)
[2017-07-16] MEDS ORDERED: potassium Cl 20 mEq SR tablet PO PRN ×4 (08:00→09:05)
[2017-07-16] MEDS: aspirin 81mg tab.chew PO SCH (09:17)
[2017-07-16] MEDS: amiodarone 200mg tablet PO SCH (09:18)
[2017-07-16] MEDS: potassium chloride 10mEq ER tablet PO SCH ×2 (09:20→19:38)
[2017-07-16] MEDS: cefTRIAXone 1g/NS 100ml IVPB 100 ML IV SCH (09:21)
[2017-07-16] MEDS: carVEDilol 3.125mg tablet PO SCH ×2 (09:21→19:40)
[2017-07-16] MEDS: FLUoxetine 20mg capsule PO SCH (09:24)
[2017-07-16] MEDS: vitamin D (cholecalciferol) 1,000 unit tablet PO SCH (09:24)
[2017-07-16] MEDS: levoTHYROXINE 100mcg tablet PO SCH (09:27)
[2017-07-16] MEDS: furosemide 40mg/4ml inj IV SCH ×2 (09:32→19:39)
[2017-07-16] MEDS: pantoprazole 40mg Tablet.DR PO SCH ×2 (09:37→19:38)
[2017-07-16] MEDS: LIOthyronine 25mcg tablet PO SCH (09:37)
[2017-07-16] MEDS: OMEGA-3/DHA/EPA/FISH OIL 1 EACH CAPSULE.DR PO SCH (09:41)
[2017-07-16] MEDS: calcium carbonate 500mg tablet PO SCH (09:42)
[2017-07-16] MEDS: heparin, porcine 5000 units/ml vial SQ SCH ×2 (09:45→19:40)
[2017-07-16] MEDS ORDERED: potassium Cl oral solution 20 MEQ/15 ML PO PRN (10:45)
[2017-07-16 11:00] VITALS: BP 128/71
[2017-07-16] MEDS: potassium Cl oral solution 20 MEQ/15 ML PO PRN ×2 (11:27→15:50)
[2017-07-16] MEDS: azithromycin/NS 500mg/250ml 250 ML IV SCH (11:53)
[2017-07-16] MEDS ORDERED: ondansetron 4mg rapidly disintigrating tab PO PRN (12:20)
[2017-07-16 12:39] LABS: CLARITY,URINE CLEAR (Clear); COLOR,URINE STRAW (Yellow); GLUCOSE, URINE NEGATIVE (Neg); KETONES,URINE NEGATIVE (Neg); LEUKOCYTE ESTERASE ,URINE NEGATIVE (Neg); NITRITES, URINE NEGATIVE (Neg); OCCULT BLOOD,URINE NEGATIVE (Neg); PROTEIN,URINE NEGATIVE (Neg); UROBILINOGEN,URINE 0.2 E.U/dL (0.2-1.0)
[2017-07-16 12:43] LABS: UA COLLECTION TYPE VOIDED
[2017-07-16 15:00] VITALS: BP 125/66
[2017-07-16 17:44] VITALS: BP 133/72
[2017-07-16] MEDS: lactobacillus rhamnosus 10,000 MMU CELLS/CAPSULE PO SCH (19:40)
[2017-07-16 20:00] VITALS: BP 132/63
[2017-07-16] MEDS: donepezil 5mg tablet PO SCH (21:04)
[2017-07-16] MEDS: atorvastatin 20mg tablet PO SCH (21:04)
[2017-07-17] VITALS: BP 125/64
[2017-07-17] MEDS: ipratropium/albuterol 3ml nebule NEB SCH ×6 (03:26→23:28)
[2017-07-17] MEDS: potassium Cl oral solution 20 MEQ/15 ML PO PRN (03:42)
[2017-07-17] MEDS: methylPREDNISolone sod succ 125mg/2ml vial IV SCH ×3 (03:42→21:47)
[2017-07-17 05:34] LABS: BASOPHILS % (AUTO) 0 % (0-1); EOSINOPHILS # (AUTO) 0.2 X10'3 (0-0.9); EOSINOPHILS % (AUTO) 1.3 % (0-6); HEMATOCRIT 35.4 % (35.0-45.0); HEMOGLOBIN 12.1 g/dl (12.0-16.0); LYMPHOCYTES # (AUTO) 0.9 X10'3 (1.1-4.8); LYMPHOCYTES % (AUTO) 6.3 % (21-51); MEAN CORPUSCULAR HGB CONC 34.3 % (33.0-36.5); MEAN CORPUSCULAR VOLUME 90.4 FL (78-98); MEAN PLATELET VOLUME 9.7 FL (7.4-10.4); MONOCYTES # (AUTO) 0.5 X10'3 (0-0.9); MONOCYTES % (AUTO) 3.3 % (2-12); NEUTROPHILS # (AUTO) 12.4 X10'3 (1.8-7.7); NEUTROPHILS % (AUTO) 89.1 % (42-75); PLATELET COUNT 222 X10'3 (140-440); RED BLOOD COUNT 3.91 X10'6 (4.20-5.60); RED CELL DISTRIBUTION WIDTH 14.4 % (11.5-14.5); WHITE BLOOD COUNT 13.9 X10'3 (4.5-11.0)
[2017-07-17 05:47] LABS: ALANINE AMINOTRANSFERASE 34 U/L (12-78); ALBUMIN 2.6 G/DL (3.4-5.0); ALBUMIN/GLOBULIN RATIO 0.6 (1.1-1.5); ALKALINE PHOSPHATASE 164 IU/L (46-116); ANION GAP 9 (8-16); ASPARTATE AMINO TRANSFERASE 23 U/L (10-37); BILIRUBIN,TOTAL 0.4 MG/DL (0.1-1.0); BLOOD UREA NITROGEN 31 MG/DL (7-18); BUN/CREATININE RATIO 30.4 (6.6-38.0); CALCIUM 8.6 MG/DL (8.5-10.1); CHLORIDE 107 MMOL/L (99-107); CREATININE 1.02 MG/DL (0.40-0.90); GLUCOSE 130 MG/DL (70-104); POTASSIUM 3.8 MMOL/L (3.5-5.1); SODIUM 145 MMOL/L (135-145); TOTAL CARBON DIOXIDE 28.9 MMOL/L (24-32); TOTAL PROTEIN 7.2 G/DL (6.4-8.2); eGFR 52 ML/MIN
[2017-07-17 07:00] VITALS: BP 135/62
[2017-07-17] MEDS: K and/or MAG REPLACEMENT MC SCH (08:00)
[2017-07-17] MEDS: OMEGA-3/DHA/EPA/FISH OIL 1 EACH CAPSULE.DR PO SCH (08:00)
[2017-07-17] MEDS: FLUoxetine 20mg capsule PO SCH (09:04)
[2017-07-17] MEDS: vitamin D (cholecalciferol) 1,000 unit tablet PO SCH (09:04)
[2017-07-17] MEDS: calcium carbonate 500mg tablet PO SCH (09:05)
[2017-07-17] MEDS: aspirin 81mg tab.chew PO SCH (09:05)
[2017-07-17] MEDS: carVEDilol 3.125mg tablet PO SCH ×2 (09:06→21:45)
[2017-07-17] MEDS: amiodarone 200mg tablet PO SCH (09:07)
[2017-07-17] MEDS: potassium chloride 10mEq ER tablet PO SCH ×2 (09:07→21:45)
[2017-07-17] MEDS: lactobacillus rhamnosus 10,000 MMU CELLS/CAPSULE PO SCH ×2 (09:08→21:45)
[2017-07-17] MEDS: heparin, porcine 5000 units/ml vial SQ SCH ×2 (09:09→21:46)
[2017-07-17] MEDS: furosemide 40mg/4ml inj IV SCH ×2 (09:09→21:46)
[2017-07-17] MEDS: pantoprazole 40mg Tablet.DR PO SCH ×2 (09:09→21:46)
[2017-07-17] MEDS: LIDOcaine 5% patch TP SCH (09:10)
[2017-07-17] MEDS: cefTRIAXone 1g/NS 100ml IVPB 100 ML IV SCH (09:11)
[2017-07-17] MEDS: azithromycin/NS 500mg/250ml 250 ML IV SCH (09:11)
[2017-07-17] MEDS: levoTHYROXINE 100mcg tablet PO SCH (09:13)
[2017-07-17] MEDS: LIOthyronine 25mcg tablet PO SCH (10:57)
[2017-07-17 12:00] VITALS: BP 130/77
[2017-07-17] MEDS: traMADol 50MG tablet PO PRN (21:45)
[2017-07-17] MEDS: atorvastatin 20mg tablet PO SCH (21:45)
[2017-07-17] MEDS: donepezil 5mg tablet PO SCH (21:46)
[2017-07-18] MEDS: ipratropium/albuterol 3ml nebule NEB SCH ×3 (03:11→10:44)
[2017-07-18] MEDS: methylPREDNISolone sod succ 125mg/2ml vial IV SCH ×2 (04:10→12:28)
[2017-07-18 06:16] LABS: BASOPHILS % (AUTO) 0.1 % (0-1); EOSINOPHILS # (AUTO) 0.1 X10'3 (0-0.9); EOSINOPHILS % (AUTO) 1.2 % (0-6); HEMATOCRIT 35.1 % (35.0-45.0); HEMOGLOBIN 12.2 g/dl (12.0-16.0); LYMPHOCYTES # (AUTO) 0.8 X10'3 (1.1-4.8); MEAN CORPUSCULAR HEMOGLOBIN 31.3 PG (27.0-31.0); MEAN CORPUSCULAR HGB CONC 34.8 % (33.0-36.5); MEAN CORPUSCULAR VOLUME 89.9 FL (78-98); MEAN PLATELET VOLUME 9.9 FL (7.4-10.4); MONOCYTES # (AUTO) 0.4 X10'3 (0-0.9); MONOCYTES % (AUTO) 3.7 % (2-12); NEUTROPHILS # (AUTO) 8.9 X10'3 (1.8-7.7); PLATELET COUNT 205 X10'3 (140-440); RED BLOOD COUNT 3.91 X10'6 (4.20-5.60); RED CELL DISTRIBUTION WIDTH 14.2 % (11.5-14.5); WHITE BLOOD COUNT 10.2 X10'3 (4.5-11.0)
[2017-07-18 06:38] LABS: ALANINE AMINOTRANSFERASE 32 U/L (12-78); ALBUMIN 2.6 G/DL (3.4-5.0); ALBUMIN/GLOBULIN RATIO 0.6 (1.1-1.5); ALKALINE PHOSPHATASE 156 IU/L (46-116); ANION GAP 10 (8-16); ASPARTATE AMINO TRANSFERASE 22 U/L (10-37); BILIRUBIN,TOTAL 0.4 MG/DL (0.1-1.0); BLOOD UREA NITROGEN 31 MG/DL (7-18); BUN/CREATININE RATIO 28.7 (6.6-38.0); CALCIUM 8.8 MG/DL (8.5-10.1); CHLORIDE 105 MMOL/L (99-107); CREATININE 1.08 MG/DL (0.40-0.90); GLUCOSE 117 MG/DL (70-104); POTASSIUM 3.3 MMOL/L (3.5-5.1); SODIUM 145 MMOL/L (135-145); TOTAL CARBON DIOXIDE 29.8 MMOL/L (24-32); TOTAL PROTEIN 7.2 G/DL (6.4-8.2); eGFR 49 ML/MIN
[2017-07-18] MEDS: potassium chloride 10mEq ER tablet PO SCH (07:34)
[2017-07-18] MEDS: levoTHYROXINE 100mcg tablet PO SCH (07:34)
[2017-07-18] MEDS: calcium carbonate 500mg tablet PO SCH (07:34)
[2017-07-18] MEDS: FLUoxetine 20mg capsule PO SCH (07:35)
[2017-07-18] MEDS: vitamin D (cholecalciferol) 1,000 unit tablet PO SCH (07:35)
[2017-07-18] MEDS: amiodarone 200mg tablet PO SCH (07:35)
[2017-07-18] MEDS: carVEDilol 3.125mg tablet PO SCH (07:35)
[2017-07-18] MEDS: lactobacillus rhamnosus 10,000 MMU CELLS/CAPSULE PO SCH (07:35)
[2017-07-18] MEDS: pantoprazole 40mg Tablet.DR PO SCH (07:36)
[2017-07-18] MEDS: heparin, porcine 5000 units/ml vial SQ SCH (07:37)
[2017-07-18] MEDS: LIDOcaine 5% patch TP SCH (07:37)
[2017-07-18] MEDS: azithromycin/NS 500mg/250ml 250 ML IV SCH (07:48)
[2017-07-18] MEDS: OMEGA-3/DHA/EPA/FISH OIL 1 EACH CAPSULE.DR PO SCH (07:48)
[2017-07-18] MEDS ORDERED: aspirin 325mg tablet PO SCH (07:50)
[2017-07-18] MEDS: LIOthyronine 25mcg tablet PO SCH (07:56)
[2017-07-18 07:59] VITALS: BP 134/77
[2017-07-18] MEDS: K and/or MAG REPLACEMENT MC SCH (08:00)
[2017-07-18] MEDS ORDERED: furosemide 40mg/4ml inj IV SCH (08:00)
[2017-07-18] MEDS: cefTRIAXone 1g/NS 100ml IVPB 100 ML IV SCH (10:06)
[2017-07-18 11:00] VITALS: BP 135/68
[2017-07-18] MEDS ORDERED: CEFD300C3 PO (13:31)
== END 2017-07-18 16:01 | DRG 280 ==
LOC: ER 03:38 → ED HOLD 08:00 → PCU 3S 17:54 → SUR 3N 07-16 17:05
PROVIDERS: ADMIT Nurse Practitioner Family; ATTEND Internal Medicine
DX: I21.4 Non-ST elevation (NSTEMI) myocardial infarction (principal); I50.33 Acute on chronic diastolic (congestive) heart failure; J18.1 Lobar pneumonia, unspecified organism; I48.91 Unspecified atrial fibrillation; J44.0 Chronic obstructive pulmonary disease with (acute) lower respiratory infection; Z99.81 Dependence on supplemental oxygen; J44.1 Chronic obstructive pulmonary disease with (acute) exacerbation; C50.919 Malignant neoplasm of unspecified site of unspecified female breast; F03.90 Unspecified dementia, unspecified severity, without behavioral disturbance, psychotic disturbance, mood disturbance, and anxiety; I35.0 Nonrheumatic aortic (valve) stenosis; E03.9 Hypothyroidism, unspecified; E78.00 Pure hypercholesterolemia, unspecified; K44.9 Diaphragmatic hernia without obstruction or gangrene; M19.90 Unspecified osteoarthritis, unspecified site; M54.9 Dorsalgia, unspecified; E87.6 Hypokalemia; G47.30 Sleep apnea, unspecified; I25.10 Atherosclerotic heart disease of native coronary artery without angina pectoris; K21.9 Gastro-esophageal reflux disease without esophagitis; Z90.49 Acquired absence of other specified parts of digestive tract; Z95.0 Presence of cardiac pacemaker; Z91.040 Latex allergy status; Z88.1 Allergy status to other antibiotic agents; Z88.6 Allergy status to analgesic agent; Z87.891 Personal history of nicotine dependence
CPT/HCPCS: 36415; 71045; 71250; 80053; 81003; 83605; 83735; 83880; 84145; 84484; 85025; 87040; 87070; 93005; 94640; 94760; 97116; 97162; 97530; 99285; C9113; J0456; J0696; J1644; J1940; J2930; J3475; J3480; J7030